=== PATIENT | male | born 1985 | race Caucasian/White ===

== ENCOUNTER 2018-03-22 09:38 | Emergency (ER) | payer OTHER ==
[~2018-03-22] VITALS: Ht 190.5 cm; Wt 115.9 kg
[2018-03-22 09:41] VITALS: TEMP 98
[2018-03-22] MEDS ORDERED: LIPITOR 40MG TA40 MG PO (10:00)
[2018-03-22] MEDS ORDERED: TRILIPIX 135MG PO (10:00)
[2018-03-22] MEDS ORDERED: HUMALOG PEN100 U/ML SQ (10:01)
[2018-03-22] MEDS ORDERED: TRESIBA FL200 UNIT/1 SQ (10:01)
[2018-03-22 10:20] LABS: EOS # 0.1 (0.0-0.7); EOS % 2.1 % (0-4.0); GRAN # 1.4 (1.4-6.5); GRAN % 37.1 % (42.2-75.2); HEMATOCRIT 43.6 % (42.0-52.0); HEMOGLOBIN 16.2 g/dl (13.5-18.0); LYMPH # 1.8 (1.2-3.4); LYMPH % 46.9 % (20.0-51.0); MEAN CELL VOLUME 87 fl (80.0-100.0); MEAN CORPUSCULAR HEMOGLOBIN 32 pg (27.0-31.0); MEAN CORPUSCULAR HGB CONC 37 g/dl (33.0-37.0); MEAN PLATELET VOLUME 9.5 fl (7.4-10.4); MONO # 0.5 (0.1-0.6); MONO % 12.4 % (1.7-9.3); PLATELET COUNT 170 K/mm3 (130-400); RED BLOOD COUNT 5.01 M/mm3 (4.20-5.60); REDCELL DISTRIBUTION WIDTH-CV 11.9 % (11.5-14.5)
[2018-03-22 10:21] LABS: ALBUMIN 4.3 gm/dL (3.5-5.0); BILIRUBIN,TOTAL 0.6 mg/dL (0.0-1.0); CALCIUM 8.9 mg/dL (8.4-10.2); CREATININE, serum 0.82 mg/dL (0.66-1.25); MAGNESIUM 1.7 mg/dL (1.6-2.3); PHOSPHOROUS 3.6 mg/dL (2.5-4.5); POTASSIUM 3.4 mmol/L (3.4-5.0)
[2018-03-22 11:26] LABS: COLLECTION METHOD CLEAN CATCH
[2018-03-22 11:36] LABS: PH 6 (5-8); SQUAMOUS EPITHELIAL None Seen /hpf; URINE APPEARANCE Clear; URINE BACTERIA None Seen /hpf; URINE BILIRUBIN Negative (NEGATIVE); URINE BLOOD 1+ (NEGATIVE); URINE COLOR Straw; URINE GLUCOSE 3+ (NEGATIVE); URINE KETONE Negative (NEGATIVE); URINE LEUKOCYTE ESTERASE Negative (NEGATIVE); URINE NITRATE Negative (NEGATIVE); URINE PROTEIN(semi-quant) Negative (NEGATIVE); URINE RBC 0-2 /hpf; URINE UROBILINOGEN Negative (NEGATIVE)
[2018-03-22 11:48] LABS: TRICYCLIC ANTIDEPRESS URINE NEGATIVE
[2018-03-22] MEDS ORDERED: VALIUM 2MG T2 MG/TAB PO (13:03)
[2018-03-22 13:48] VITALS: BP 126/86; PULSE 88
== END 2018-03-22 13:50 | disposition home or self-care (01) ==
LOC: COL.ER 09:38
PROVIDERS: Emergency Medicine
DX: F10.10 Alcohol abuse, uncomplicated (principal); E11.9 Type 2 diabetes mellitus without complications; F12.10 Cannabis abuse, uncomplicated; Z79.4 Long term (current) use of insulin; Y90.6 Blood alcohol level of 120-199 mg/100 ml
CPT/HCPCS: J2060; J3411; J3475; J7030